=== PATIENT | male | born 1955 | race Caucasian/White ===

== ENCOUNTER 2019-05-24 15:25 | Inpatient (IN) | payer MEDICARE ==
[2019-05-24] MEDS ORDERED: Lidocaine Viscous Sol 2% 15 ml UD Cup ONE (17:19)
[2019-05-24] MEDS ORDERED: Mag-Al 1200 mg/1200 mg/30 ML UDCUP ONE (17:19)
--- NOTE | 2019-05-24 19:08 | PDOC.FPRHP ---
- History of Present Illness Chief Complaint: abdominal pain History of Present Illness: Patient is a 64M with PMHx of HTN, HLD, CVA 1.5 yrs ago, CABG (3-v) in 2014 that presents as a transfer from [place] for abdominal pain. The patient reports that since he has had intermittent mid- epigastric abdominal pain. He reports that he had a colonoscopy and endoscopy this past March that were both normal. He states that the pain has worsened over the last 2 days. He states that the pain usually occurs 1-2 hours after eating and is improved with eating. He also endorses dysuria and increased urinary frequency. He denies any cp, sob, n/v. He endorses 1-2 black watery stools/week for the last several months. Denies BRBPR. Cardiac hx: He reports his last stress test was last december, was normal at that time and he did not require a cath with stents. He had a CABG (3-v) in 2014. He had a CVA 1.5 years ago that left him with residual left-sided weakness that he reports has improved with therapy. PCP: [facility] ED Course: 3L NS, 324mg asa, 1in nitro, 3.375mg zosyn, 4mg morphine, 0.4mg nitrostat, GI cocktail - Allergies/Adverse Reactions Allergies Allergy/AdvReac Type Severity Reaction Status Date / Time Calcium Channel Blocking Allergy Verified 05/24/19 20:12 Agent Dilt Calcium Channel Blocking Allergy Verified 05/24/19 20:12 Agents-Dih furosemide [From Lasix] Allergy Verified 05/24/19 20:12 [id number] Reductase Allergy Verified 05/24/19 20:12 Inhibitor Sulfa (Sulfonamide Allergy Verified 05/24/19 20:12 Antibiotics) - Home Medications Medication Instructions Recorded Confirmed Type Linaclotide [Linzess] 72 mcg PO DAILY 05/24/19 05/24/19 History Lisinopril 40 mg PO DAILY 05/24/19 05/24/19 History Nebivolol HCl [Bystolic] 20 mg PO DAILY 05/24/19 05/24/19 History Omeprazole 40 mg PO DAILY 05/24/19 05/24/19 History Sildenafil Citrate 1 tab PO TID 05/24/19 05/24/19 History Tamsulosin HCl [Flomax] 1 cap PO DAILY 05/24/19 05/24/19 History clonazePAM [Clonazepam] 1 mg PO DAILY 05/24/19 05/24/19 History clonazePAM [Clonazepam] 2 mg PO HS 05/24/19 05/24/19 History - History PMHx: HTN, HLD, CVA 1.5 yrs ago, CABG (3-v) in 2014 PSHx: 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, laminectomy, appy, gaby, mitral valve replacement/surgery FHx: Father passed at age 86 from [place] Social: social drinker; reports drinks .5-1 pint of beer occasionally at home but as he is on vacation currently visiting his brother he has drank 1 pint of tequila/day for the last 3 days; non smoker, uses medical marijuana at home - Review of Systems General: denies: fever/chills, weight/appetite/sleep changes Eyes: denies: eye pain, vision changes ENT: denies: nasal congestion, rhinorrhea Respiratory: denies: cough, shortness of breath Cardiovascular: denies: chest pain, edema Gastrointestinal: reports: diarrhea, abdominal pain. denies: nausea, vomiting Genitourinary: reports: dysuria, other (increased urinary frequency) Skin: denies: lesions, jaundice Musculoskeletal: denies: tenderness, stiffness Neurological: denies: syncope, seizure Psychological: denies: anxiety, depression - Vital signs BP: [164/110] HR: [94] RR: [18] Tmax: [98.7F] Pox: [95]% on [RA] Wt: [99.79kg ] - Physical Exam Constitutional: NAD, awake, alert and oriented HEENT: normocephalic and atraumatic, MMM Neck: supple, FROM Chest: no-tender to palpation, no lesions Heart: RRR, normal S1/S2 Lungs: CTAB, no respiratory distress Abdomen: soft, bowel sounds present, other (slightly ttp LLQ) Musculoskeletal: normal structure, ROM grossly normal Neurological: no focal deficit, normal sensation Skin: no rash/lesions, good turgor Heme/Lymphatic: no unusual bruising or bleeding, no purpura Psychiatric: normal mood and affect, good judgment and insight Additional comment: CHEPE: no hemorrhoids noted, no BRBPR; small amount of brown stool, some tenderness with palpation of prostate FMR H&P: Results - Labs Lab results: CK-MB (CK-2) 2.0 ng/mL (0-6.6) 05/24/19 15:51 Lipase 9 U/L (8-78) 05/24/19 15:57 - EKG Interpretation EKG: Sinus tachycardia - Radiology Interpretation CT scan - abdomen Status: report reviewed by me (no acute process, small L renal cyst, prostatic enlargement, colonic diverticulosis) Chest x-ray Status: report reviewed by me (No acute process) FMR H&P: A/P - Problem List (1) Sepsis Current Visit: Yes Status: Acute Code(s): A41.9 - SEPSIS, UNSPECIFIED ORGANISM (2) Prostatitis Current Visit: Yes Status: Acute Code(s): N41.9 - INFLAMMATORY DISEASE OF PROSTATE, UNSPECIFIED (3) Abdominal pain Current Visit: Yes Status: Acute Code(s): R10.9 - UNSPECIFIED ABDOMINAL PAIN (4) Elevated troponin Current Visit: Yes Status: Acute Code(s): R79.89 - OTHER SPECIFIED ABNORMAL FINDINGS OF BLOOD CHEMISTRY (5) Elevated lactic acid level Current Visit: Yes Status: Acute Code(s): R79.89 - OTHER SPECIFIED ABNORMAL FINDINGS OF BLOOD CHEMISTRY (6) Hx of CABG Current Visit: Yes Status: Chronic (7) HTN (hypertension) Current Visit: Yes Status: Chronic Code(s): I10 - ESSENTIAL (PRIMARY) HYPERTENSION (8) HLD (hyperlipidemia) Current Visit: Yes Status: Chronic Code(s): E78.5 - HYPERLIPIDEMIA, UNSPECIFIED (9) History of CVA (cerebrovascular accident) Current Visit: Yes Status: Chronic Code(s): Z86.73 - PRSNL HX OF TIA (TIA), AND CEREB INFRC W/O RESID DEFICITS - Plan Patient is a 64F with PMHx of HTN, HLD, CVA 1.5 yrs ago, CABG (3-v) in 2014 admitted to [facility] obs for: #Sepsis 2/2 prostatitis #Elevated lactic acid -patient was sensitive with CHEPE -patient has received 3L NS -will continue IVF -will continue to monitor -will start levaquin at this time #Abdominal pain -has been intermittent since January 2019 -has had 1 black watery stool per week, sometimes pink -EGD and colonoscopy in March reportedly normal -pain described as occurring 1-2 hours after a meal and improves with food, suspect possible duodenal ulcer -pain has improved in ED with GI cocktail -FOBT pending -H pylori pending -start protonix qd, carafate QID #Elevated trop -trop 0.026>0.078 -patient denies chest pain, reports last stress in december was normal -will request records from last stress -EKG demonstrated sinus tach -will continue to trend trops; if positive with start therapeutic lovenox and call cards in am #HTN -continue home meds #HLD -continue home meds #Hx of CVA -patient reports symptoms resolved with therapy -will continue home meds Diet: HH DVT ppx: scds Dispo: tele obs for cardiac monitoring; will trend trops; protonix and carafate for abdominal pain, h pylori and FOBT pending Code: Full PCP: [facility] FMR H&P: Upper Level - Plan Date/Time: 05/24/19 005 IEdmund MD, have evaluated this patient and agree with findings/plan as outlined by staff internist office based only resident. Pertinent changes/additions are listed here. Gene Huff is a 64 year old M with a PMH of CVA, CAD s/p 3V CABG in 2014, HTN, HLD who was transferred to [facility] from [place] for abdominal pain r/o sepsis and ACS r/o. Pt states that since thanksgiving he has been having midepigastric pain intermittently. Had neg EGD and colonoscopy in Jan 2019. Epigastric pain has worsened over the last two days. States that he has had low back pain as well and intermittent dysuria for the last month. Denies any fever, chills, chest pain, dyspnea, n/v. Endorses occasional black watery stools per week. Denies BRBPR. He states his last stress test was done in March and was normal. Active, Walks 2 miles a day. He was given zosyn, 2 L NS, morphine and GI cocktail and ASA and nitro in ED. In the ED, vitals were BP 164/110, HR 84, RR 18, O2 sat 95% on RA, T 98.7. EKG showed sinus tachycardia. CT abd showed no active process, small left renal cyst, prostatic enlargement, diverticulosis. CXR neg. Labs showed trop 0.078, TSH 1.72, Lipase 9, Lactic acid 4.1. UA neg, WBC 8.6. On exam, MMM, AT/NC, RRR no murmurs, lungs CTAB, abdomen mildly tender in suprapubic location. Rectal exam sig for tender prostate. FOBT neg. Admitting patient for sepsis 2/2 possible prostatitis. Starting levaquin. Blood and urine cultures drawn. For ACS r/o, trend trops. If trops become positive, will start therapeutic lovenox and consult cardiology in the AM. Please see staff internist office based only note above for full h&p, which I have reviewed and agree with. Addendum - Attending - Attending Attestation Date/Time: 05/24/19 5471 I personally evaluated the patient and discussed the management with Dr. Sherwood/ Tristin I agree with the History, Examination, Assessment and Plan documented above with any addition or exceptions noted below. See staff internist office based only note for details.
[2019-05-24 19:27] LABS: Troponin I 0.237 ng/mL (< 0.028)
[2019-05-24] MEDS ORDERED: Ondansetron PF 4 MG/2 ML Vial IVP PRN (19:52)
[2019-05-24] MEDS ORDERED: Acetaminophen 325 MG TAB PO PRN (19:52)
[2019-05-24] MEDS ORDERED: Ondansetron ODT 4 MG TAB SL PRN (19:52)
[2019-05-24 20:01] VITALS: BMI 28.0
[2019-05-24] MEDS ORDERED: Ondansetron ODT 4 MG TAB PO PRN (20:14)
--- NOTE | 2019-05-24 21:10 | PDOC.EVN ---
Addendum - Attending - Attending Attestation Date/Time: 05/24/192108 I personally evaluated the patient and discussed the management with Dr. Sherwood/ Tristin. I agree with the History, Examination, Assessment and Plan documented above with any addition or exceptions noted below. 64 yo WM PMH CAD s/p PCI and CABG x3 VZ. Presents with epigastric pain and pain with urination. Epigastric pain intermittent for several months but worsened over past 2-3 days. Dysuria present for 2-3 days. Has known hx of BPH but hx of operative intervention. Not currently on meds. States epigastric pain resolved with GI cocktail and endorses increased EtOH use since he came to [facility] to visit family. Denies fever/chills or CP. Denies new sexual partners or MSM. In outside ER, found to be tachycardia and tachypnic with elevated lactate. On exam , mild tachycardia but otherwise WNL. CHEPE performed by materials intern which patient stated he felt more pain with palpation of prostate. Labs show up trending trop , elevated lactate, EKG shows sinus tach but otherwise unremarkable. CXR negative. CT abd/pelvis negative. Will admit inpatient for Severe sepsis 2/2 acute prostatitis and demand ischmia w/o SC. Continue IV fluids and IV levaquin. Trend trop and if becomes >0.3 will give therapeutic lovenox x1 dose until cardiology can evaluate. Will monitor closely. Start flomax. Inpatient, tele, >2 midnights.
[2019-05-24] MEDS: Sucralfate 1 GM/10 ML UDCUP PO SCH (21:16)
[2019-05-24] MEDS: Lactated Ringer's 1,000 ML IV SCH (21:20)
[2019-05-24 22:35] LABS: Lactic Acid 1.1 mmol/L (0.5-2.2)
[2019-05-24] MEDS ORDERED: clonazePAM 1 MG TAB PO SCH (22:45)
[2019-05-24 22:46] LABS: Troponin I 0.386 ng/mL (< 0.028)
[2019-05-24] MEDS ORDERED: Enoxaparin Sodium 100 MG/ML SYRINGE SC SCH (23:15)
[2019-05-25] MEDS: Acetaminophen 325 MG TAB PO PRN (03:57)
[2019-05-25] MEDS: Labetalol HCl 100 MG/20 ML VIAL SLOW IVP PRN (04:35)
[2019-05-25] MEDS: Lactated Ringer's 1,000 ML IV SCH (04:36)
[2019-05-25 04:53] LABS: #Basophils 0.1 thou/uL (0.0-0.2); #Eosinphils 0.2 thou/uL (0.0-0.7); #Lymphocytes 2.5 thou/uL (1.20-3.40); #Monocytes 0.6 thou/uL (0.11-0.59); %Basophils 0.9 % (0.0-1.0); %Eosinophils 2.8 % (0.0-10.0); %Lymphocytes 30.1 % (21.0-51.0); %Neutrophils 59.1 % (42.0-75.0); Hemoglobin 13.9 g/dL (14.0-18.0); Mean Corpuscular Hemoglobin 32.1 pg (27.0-31.0); Mean Corpuscular Volume 94.2 fL (78.0-98.0); Mean Platelet Volume 9.2 fL (7.4-10.4); Platelet Count 172 thou/uL (130-400); RBC Distribution Width 11.8 % (11.5-14.5); Red Blood Cell (RBC) Count 4.33 mill/uL (4.70-6.10); White Blood Cell (WBC) Count 8.4 thou/uL (4.8-10.8)
[2019-05-25 05:17] LABS: Anion Gap 11 mmol/L (10-20); BUN (Urea Nitrogen) 11 mg/dL (8.4-25.7); Calc. Creatinine Clearance 118 mL/min (70-130); Calcium 9.7 mg/dL (7.8-10.44); Carbon Dioxide 26 mmol/L (23-31); Chloride 103 mmol/L (98-107); Estimated GFR-MDRD Greater than 90; Glucose 99 mg/dL (80-115); Potassium 3.9 mmol/L (3.5-5.1); Sodium 136 mmol/L (136-145)
[2019-05-25 05:22] LABS: Troponin I 0.467 ng/mL (< 0.028)
[2019-05-25] MEDS: Morphine 2 MG/ML SYRINGE SLOW IVP PRN ×3 (05:31→14:15)
[2019-05-25] MEDS: Nebivolol HCl 5 MG TAB PO SCH (08:23)
[2019-05-25] MEDS: Sucralfate 1 GM/10 ML UDCUP PO SCH ×4 (08:34→21:10)
[2019-05-25] MEDS: clonazePAM 1 MG TAB PO SCH (08:36)
--- NOTE | 2019-05-25 08:47 | PDOC.FM ---
- Subjective Subjective: Pt reports abd pain has improved somewhat but he still feels some suprapubic tenderness, states he now has burning on urination. otherwise no new complaints no cp/palpitations, no no sob/cough - Objective Vital Signs & Weight: Vital Signs (12 hours) Temp Pulse Resp BP BP Pulse Ox 05/25/19 08:22 156/86 H 05/25/19 08:02 97.9 F 83 16 156/86 H 95 05/25/19 06:12 83 164/91 H 05/25/19 04:35 99 189/104 H 05/25/19 04:10 99 189/104 H 100 05/25/19 03:40 98.2 F 84 20 184/102 H 95 05/24/19 23:39 97.6 F 84 16 154/87 H 95 Weight Weight 93.803 kg I&O: 05/24/19 05/25/19 05/26/19 06:59 06:59 06:59 Intake Total 1633 Output Total 1750 Balance -117 Result Diagrams: 05/25/19 11:02 05/25/19 04:39 Phys Exam - Physical Examination Constitutional: NAD HEENT: moist MMs, sclera anicteric Neck: supple, full ROM Respiratory: no wheezing, clear to auscultation bilateral Cardiovascular: RRR, no significant murmur Gastrointestinal: soft suprapubic ttp Musculoskeletal: no edema, pulses present Neurological: normal sensation, moves all 4 limbs Psychiatric: normal affect, A&O x 3 Skin: no rash, normal turgor Dx/Plan (1) Abdominal pain Code(s): R10.9 - UNSPECIFIED ABDOMINAL PAIN Status: Acute (2) Elevated lactic acid level Code(s): R79.89 - OTHER SPECIFIED ABNORMAL FINDINGS OF BLOOD CHEMISTRY Status : Acute (3) Elevated troponin Code(s): R79.89 - OTHER SPECIFIED ABNORMAL FINDINGS OF BLOOD CHEMISTRY Status : Acute (4) Prostatitis Code(s): N41.9 - INFLAMMATORY DISEASE OF PROSTATE, UNSPECIFIED Status: Acute (5) Sepsis Code(s): A41.9 - SEPSIS, UNSPECIFIED ORGANISM Status: Acute (6) HLD (hyperlipidemia) Code(s): E78.5 - HYPERLIPIDEMIA, UNSPECIFIED Status: Chronic (7) HTN (hypertension) Code(s): I10 - ESSENTIAL (PRIMARY) HYPERTENSION Status: Chronic (8) History of CVA (cerebrovascular accident) Code(s): Z86.73 - PRSNL HX OF TIA (TIA), AND CEREB INFRC W/O RESID DEFICITS Status: Chronic (9) Hx of CABG Status: Chronic - Plan Plan: Patient is a 64F with PMHx of HTN, HLD, CVA 1.5 yrs ago, CABG (3-v) in [address] [facility] obs for: sepsis 2/2 prostatitis A- Pt is stable, s/p 3L bolus IVF and on 140ml/hr overnight. Pressures stable and actually now hypertensive. P- continue levaquin -f/u BCx and UCx -will DC IVF as pt pressures stable and pt has hx of CAD -will monitor for urinary retention as pt has hx of BPH Abdominal pain A- improved. FOBT negative. has been intermittent since January 2019. he has intermittent melena. EGD and colonoscopy in March reportedly normal. pain has improved in ED with GI cocktail P-H pylori pending -continue protonix qd, carafate QID Elevated trop A- Pt got one dose Th lovenox overnight. trop 0.026>0.078->-> .46. patient denies chest pain, reports last stress in december was normal. EKG demonstrated sinus tach P- consult cards HTN -continue home meds HLD -continue home meds Hx of CVA -patient reports symptoms resolved with therapy. will continue home meds Code: Full PCP: [facility] Addendum - Attending - Attending Attestation Date/Time: 05/25/19 1120 I personally evaluated the patient and discussed the management with Dr. Hudson. I agree with the History, Examination, Assessment and Plan documented above with any addition or exceptions noted below. Continue antibiotics. Discuss with urology concerning catheter placement.
[2019-05-25] MEDS ORDERED: Tamsulosin HCl 0.4 MG CAP PO SCH ×2 (09:00→21:00)
[2019-05-25] MEDS ORDERED: Enoxaparin Sodium 100 MG/ML SYRINGE SC SCH (09:00)
[2019-05-25] MEDS ORDERED: Enoxaparin Sodium 40 MG/0.4 ML SYRINGE SC SCH (09:00)
[2019-05-25] MEDS ORDERED: Lisinopril 20 MG TAB PO SCH (09:00)
[2019-05-25] MEDS ORDERED: Linaclotide [Linzess] 72 MCG PO SCH (09:00)
[2019-05-25 11:08] LABS: Hemoglobin 14.6 g/dL (14.0-18.0); Platelet Count 179 thou/uL (130-400)
[2019-05-25 11:36] LABS: Calc. Creatinine Clearance 122 mL/min (70-130); Estimated GFR-MDRD Greater than 90
--- NOTE | 2019-05-25 12:14 | CON ---
DATE OF CONSULTATION: HISTORY OF PRESENT ILLNESS: The patient is a 64-year-old gentleman with a history of coronary artery disease who presents for evaluation for abdominal/ pelvic pain was noted to have an elevated troponin level. The patient has a previous history of coronary artery disease. He states he underwent coronary artery bypass surgery x3 in 2014. He has subsequently done well. The patient denies having any chest discomfort. The patient presents with acute onset of abdominal discomfort and pelvic pain. He has a long history of difficulty with urination. The patient came to the hospital for evaluation and was noted to be markedly hypertensive. The patient denied having any type of chest discomfort. The patient denies having any dyspnea. PAST MEDICAL HISTORY: 1. Coronary artery disease. 2. CVA. 3. Hypertension. 4. BPH. PAST SURGICAL HISTORY: Brain tumor surgery and sinus surgery. SOCIAL HISTORY: Nonsmoker. ALLERGIC: Calcium channel blockers, Lasix, statins, and sulfa drugs. FAMILY HISTORY: Positive family history of heart disease. PHYSICAL EXAMINATION: GENERAL: Well-developed gentleman, in no acute distress. VITAL SIGNS: Blood pressure 156/86. NECK: No jugular distention. LUNGS: Clear to auscultation. HEART: Regular rate and rhythm. Normal S1, S2. No murmurs. ABDOMEN: Nondistended. EXTREMITIES: Showed no edema. VASCULAR: Radial pulse 2+. LABORATORY DATA: Sodium 139, potassium 3.9, chloride 103, bicarbonate 26, BUN 11, creatinine 0.84. Troponin was 0.467. white blood cell count is 8.4, hemoglobin 14.6, hematocrit 42.0, platelets 179. IMAGING: EKG : Sinus tachycardia with occasional PVCs. IMPRESSION: 1. Abdominal pain. 2. Elevated troponin level, type 2 myocardial infarction. 3. History of coronary artery bypass surgery. 4. Hypertension. 5. History of cerebrovascular accident. 6. Dyslipidemia. This gentleman presents with abdominal pelvic pain. He presents with marked urinary retention. From a cardiac standpoint, he has a mild elevation of troponin levels indicative of a type 2 myocardial infarction secondary to his elevated blood pressure and heart rate. We will continue to monitor the patient with you and would restart aspirin. We will follow this patient with you through his hospitalization. Job ID: [id number] [facility]
[2019-05-25] MEDS: Aspirin 81 mg Enteric Coated Tablet PO SCH (12:21)
[2019-05-25] MEDS: Docusate 100 MG CAP PO PRN (12:44)
--- NOTE | 2019-05-25 13:40 | CON ---
DATE OF CONSULTATION: 05/25/2019 REASON FOR REFERRAL: Urinary retention, UTI. HISTORY OF PRESENT ILLNESS: Mr. Huff is a pleasant 64-year-old male, resident from [place], visiting his family, presented to the emergency room. Due to abdominal discomfort, he had a CT of the abdomen and pelvis with IV contrast. He was found to have urinary retention of 900 mL of postvoid residual, he was briefly on CIC, however, this was uncomfortable for him. Therefore, urologic consultation was obtained. He has been resuscitated with 3 L of IV fluids and appears comfortable at this time. Relates that he previously saw a urologist in [place], where he is a resident, provided Flomax and has been on numerous years. He also relates remote history of likely urethral stricture in which this was treated in [place]. He has had a Strong catheter per my request as he has large PVR of 900 mL, which was placed by nursing staff, currently draining mariella pink-tinged urine. He denies chills. Did have a Strong catheter in the remote past due to prior urinary retention. He is on Levaquin with Primary Service and currently afebrile, with no evidence of leukocytosis or fever. Cardiology has been consulted, as he has history of coronary artery disease, prior history of CVA. Elevated troponin noted. Therefore, Cardiology consultation was obtained. No plans to intervene from surgical standpoint at this time, as it is felt that elevated troponin may be secondary to hypertension and tachycardia. He is to restart his aspirin. Does relate history of dysuria prior to presentation. Denies gross hematuria or chills. PAST MEDICAL HISTORY: 1. Hypertension. 2. Hyperlipidemia. 3. CVA about a year and a half ago. 4. Coronary artery disease, status post CABG in 2014. 5. 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 6. Laminectomy. 7. Appendectomy. 8. Cholecystectomy. 9. Mitral valve replacement. FAMILY HISTORY: Father history, positive for [place] at age 86. SOCIAL HISTORY: He is a social drinker, occasional beer. Currently visiting his brother. Nonsmoker. Occasionally uses medical marijuana at home. REVIEW OF SYSTEMS: Ten-point review of systems as above, otherwise noncontributory. PHYSICAL EXAMINATION: VITAL SIGNS: His vital signs are stable. He is afebrile at 97.6, pulse 73, respiratory rate 16, oxygen saturation 95, and blood pressure 180/97. Vital signs from the emergency room reviewed, demonstrating no history of fever, however, he had mild tachycardia, pulse of 112, blood pressure hypertensive at 170/116. GENERAL: The patient appears to be in no acute distress. HEENT: Grossly unremarkable. HEART: Regular rate. LUNGS: Clear. ABDOMEN: Obese, protuberant. No rigidity. No rebound. GENITOURINARY: Strong catheter draining mariella yellow urine, slightly pink tinged with no clots. Testes are descended with no evidence of intratesticular mass. CHEPE gently performed demonstrating no discrete nodularity of concern. EXTREMITIES: No cyanosis, clubbing, or edema. He does have left hip ecchymosis and left upper extremity ecchymosis as he sustained a fall from his dog in the past. PERTINENT LABORATORY DATA AND IMAGING: White count 8, hemoglobin 13, no significant shift. Creatinine 0.8. Lactic acid is normal. Troponin is 0.46. On 2019, UA is unremarkable with no evidence of significant hematuria or pyuria of concern. I do not see that he was provided antibiotics from the emergency room. CT of the abdomen and pelvis with contrast, which I reviewed myself: A 12-mm exophytic renal cyst with no evidence of hydronephrosis. Colonic diverticulosis. Prostatic enlargement. Per my review, prostate measures 5.5 x 5.9, craniocaudal dimension of 8 cm. Of note, there was a median lobe component about 1.9 cm in craniocaudal dimension. Volume per my review estimated to be about 145 g. No bladder stones are seen. IMPRESSION AND PLAN: 1. Mr. Huff is a 64-year-old male with history of coronary artery disease, history of known benign prostatic hyperplasia.; Very large prostate volume trilobar hyperplasia on recent CT. 2. Likely history of urethral stricture in the remote past, presents with abdominal pain, hypertension, and mild elevated troponin. Urologic issues of PVR of 900 mL. Given his clinical history of possible urethral stricture as well, I do recommend the patient continue his indwelling urethral Strong catheter as there is significant PVR. I informed him that he will continue his indwelling Strong catheter for bladder rest due to overdistention injury due to large PVR. Based on his large prostate volume, I recommend Flomax to be increased to b.i.d., Avodart initiated. Indications reviewed. He plans to travel back to [place] next week, as he drove with his . I informed him that they should contact their primary care doctor and initiate a urology referral, so that he may be seen in a timely manner with a urologist in [place] for a voiding trial. Strong catheter indwelling would be recommended for minimum 1 to 2 weeks to allow bladder rest. Outpatient work-up with cystoscopy, will most likely require surgical intervention given his large prostate with intravesical median lobe. will follow on this admission. Call if any questions or concerns. Follow urine culture. Continue antibiotic regimen. Job ID: [id number] [facility]
--- NOTE | 2019-05-25 15:55 | EKG ---
Test Reason : Blood Pressure : / mmHG Vent. Rate : 081 BPM Atrial Rate : 081 BPM P-R Int : 176 ms QRS Dur : 092 ms QT Int : 408 ms P-R-T Axes : 060 -02 039 degrees QTc Int : 473 ms Normal sinus rhythm Normal ECG No previous ECGs available Confirmed by ROSI GAMEZ, DR. Treviño ([id number]) on 05/25/2019 3:55:17 PM Referred By: ANIKET Confirmed By:DR. Kamila ARANDA MD
[2019-05-25] MEDS ORDERED: clonazePAM 1 MG TAB PO SCH (21:00)
[2019-05-25] MEDS: Tamsulosin HCl 0.4 MG CAP PO SCH (21:11)
[2019-05-25] MEDS: Lisinopril 20 MG TAB PO SCH (21:12)
[2019-05-26] MEDS: Docusate 100 MG CAP PO PRN ×2 (02:25→08:58)
[2019-05-26] MEDS: Acetaminophen 325 MG TAB PO PRN (02:25)
--- NOTE | 2019-05-26 06:23 | PDOC.FM ---
- Subjective Subjective: Patient feeling better this morning. Says he still feels a "catch" in his lower abdomen and still feels some suprapubic pressure. He says he spoke with his PCP in [place] and that he was instructed by the PCP to stay in the [facility] area for the foreseeable future due to the COVID-19 outbreak. He wants to have any needed surgical intervention done in [place] instead of having done in [place]. He does have relatives in the [facility] area that he can stay with if surgery warranted. - Objective MAR Reviewed: Yes Vital Signs & Weight: Vital Signs (12 hours) Temp Pulse Resp BP BP Pulse Ox 05/26/19 04:00 160/96 H 05/26/19 02:31 76 16 160/96 H 96 05/25/19 21:12 147/81 H 05/25/19 20:00 98.4 F 78 16 147/81 H 147/81 H 96 Weight Admit Weight 93.803 kg Weight 93.803 kg I&O: 05/24/19 05/25/19 05/26/19 06:59 06:59 06:59 Intake Total 2133 Output Total 4550 Balance -2417 Result Diagrams: 05/25/19 11:02 05/25/19 11:02 Phys Exam - Physical Examination Constitutional: NAD HEENT: moist MMs, sclera anicteric Neck: no nodes, no JVD, supple Respiratory: no wheezing, no rhonchi, clear to auscultation bilateral Cardiovascular: RRR, no significant murmur Gastrointestinal: soft, no distention, positive bowel sounds mildly TTP suprapubic area Musculoskeletal: no edema, pulses present Neurological: normal sensation, moves all 4 limbs Lymphatic: no nodes Psychiatric: normal affect, A&O x 3 Skin: no rash, normal turgor Dx/Plan (1) Non-ST elevation (NSTEMI) myocardial infarction Code(s): I21.4 - NON-ST ELEVATION (NSTEMI) MYOCARDIAL INFARCTION Status: Acute (2) Abdominal pain Code(s): R10.9 - UNSPECIFIED ABDOMINAL PAIN Status: Acute Qualifiers: Abdominal location: generalized Qualified Code(s): R10.84 - Generalized abdominal pain (3) Elevated lactic acid level Code(s): R79.89 - OTHER SPECIFIED ABNORMAL FINDINGS OF BLOOD CHEMISTRY Status : Acute (4) Prostatitis Code(s): N41.9 - INFLAMMATORY DISEASE OF PROSTATE, UNSPECIFIED Status: Acute Qualifiers: Prostatitis type: acute Qualified Code(s): N41.0 - Acute prostatitis (5) Sepsis Code(s): A41.9 - SEPSIS, UNSPECIFIED ORGANISM Status: Acute Qualifiers: Sepsis type: sepsis due to unspecified organism Severe sepsis acute organ dysfunction type: acute renal failure Acute renal failure type: unspecified Severe sepsis shock status: without septic shock (6) HLD (hyperlipidemia) Code(s): E78.5 - HYPERLIPIDEMIA, UNSPECIFIED Status: Chronic Qualifiers: Hyperlipidemia type: unspecified Qualified Code(s): E78.5 - Hyperlipidemia , unspecified (7) HTN (hypertension) Code(s): I10 - ESSENTIAL (PRIMARY) HYPERTENSION Status: Chronic Qualifiers: Hypertension type: unspecified Qualified Code(s): I10 - Essential (primary ) hypertension (8) History of CVA (cerebrovascular accident) Code(s): Z86.73 - PRSNL HX OF TIA (TIA), AND CEREB INFRC W/O RESID DEFICITS Status: Chronic (9) Hx of CABG Status: Chronic - Plan Plan: Patient is a 64F with PMHx of HTN, HLD, CVA 1.5 yrs ago, CABG (3-v) in 2014 admitted to [facility] in for: #Sepsis 2/2 prostatitis -Pt is stable, s/p 3L bolus IVF and on 140ml/hr maintenance. IVF discontinued yesterday. Pressures stable and actually now hypertensive. -continue Levaquin -f/u BCx from outside ED, urine cultures not obtained -will DC IVF as pt pressures stable and pt has hx of CAD -will monitor for urinary retention as pt has hx of BPH -Consult Urology--Dr. Luevano--appreciate recs, will continue Flomax with increase to BID dosing, start Avodart, recommends leaving Strong cath in for minimum of 1-2 weeks, will need f/u with PCP and Urology once he returns to [place] , continue Levaquin -Patient prefers to have all interventions for BPH done in [place] instead of [place] #Abdominal pain -improved. FOBT negative. has been intermittent since January 2019. he has intermittent melena. EGD and colonoscopy in March reportedly normal. pain has improved in ED with GI cocktail -H pylori negative -continue protonix qd, carafate QID #Type 2 NSTEMI -Pt got one dose Th lovenox overnight. trop 0.026>0.078->-> .46. patient denies chest pain, reports last stress in december was normal. EKG demonstrated sinus tach -Consult cards-Dr. Reyna, appreciate recs--will restart ASA 81 mg daily, following with this admission #HTN -continue home meds #HLD -continue home meds #Hx of CVA -patient reports symptoms resolved with therapy. will continue home meds Code: Full PCP: ERIC ([place]) Dispo: Stable, admitted to in on tele unit. Continue to monitor. Cardio & Urology consulted, appreciate recs. Anticipate discharge in <48 hours. Addendum - Attending - Attending Attestation Date/Time: 05/26/19 7316 I personally evaluated the patient and discussed the management with [Isaac ] I agree with the History, Examination, Assessment and Plan documented above with any addition or exceptions noted below. Possible DC with catheter and surgery later depending on urology discussion with patient.
[2019-05-26] MEDS: Nebivolol HCl 5 MG TAB PO SCH (08:38)
[2019-05-26] MEDS: Aspirin 81 mg Enteric Coated Tablet PO SCH (08:38)
[2019-05-26] MEDS: Tamsulosin HCl 0.4 MG CAP PO SCH (08:38)
[2019-05-26] MEDS: Lisinopril 20 MG TAB PO SCH (08:39)
[2019-05-26] MEDS: clonazePAM 1 MG TAB PO SCH (08:39)
[2019-05-26] MEDS: Sucralfate 1 GM/10 ML UDCUP PO SCH ×2 (08:40→11:39)
[2019-05-26] MEDS: Morphine 2 MG/ML SYRINGE SLOW IVP PRN ×2 (08:58→13:11)
[2019-05-26] MEDS ORDERED: Enoxaparin Sodium 30 MG/0.3 ML SYRINGE SC SCH (09:00)
[2019-05-26] MEDS ORDERED: Dutasteride 0.5 MG CAP PO SCH (09:00)
[2019-05-26] MEDS ORDERED: Ibuprofen 600 MG TAB PO PRN (10:39)
[2019-05-26] MEDS: Labetalol HCl 100 MG/20 ML VIAL SLOW IVP PRN (11:38)
[2019-05-26 11:47] VITALS: TEMP 99.3
[2019-05-26 13:35] VITALS: BP 165/101
--- NOTE | 2019-05-26 14:58 | EKG ---
Test Reason : Blood Pressure : / mmHG Vent. Rate : 107 BPM Atrial Rate : 107 BPM P-R Int : 148 ms QRS Dur : 078 ms QT Int : 372 ms P-R-T Axes : 052 -22 026 degrees QTc Int : 496 ms Sinus tachycardia Otherwise normal ECG Confirmed by MARIEL GAMEZ, ANUSHA ([id number]), subeditor CIARA SELF ([id number]) on 05/26/2019 2:58:35 PM Referred By: Confirmed By:ANUSHA FLOYD MD
[2019-05-26] MEDS ORDERED: hydrALAZINE 25 MG TAB PO SCH (15:00)
--- NOTE | 2019-05-26 15:03 | PRG ---
DATE OF SERVICE: 05/26/2019 SUBJECTIVE: The patient feeling fine, he has been deemed cleared by Primary Service to be discharged. OBJECTIVE: VITAL SIGNS: T-max of 99.3, blood pressure 165/101, respiratory rate 12, and 95% on room air. I's and O's are 2133 in and 4550 out. GENERAL: The patient is in no acute distress. LUNGS: Clear. ABDOMEN: Soft. No rigidity. No rebound. GENITOURINARY: Strong catheter adequately secured, there is degree of hematuria light red as he is on aspirin and Lovenox with minimal scant clots. I did flush his catheter, which demonstrates clear yellow urine. He desires to be discharged with gravity bag as he is planning to travel back to [place] in his private vehicle. IMPRESSION AND PLAN: 1. Mr. Huff is a 64-year-old male with history of coronary artery disease, known history of benign prostatic hyperplasia, recent CT demonstrating very large prostate volume trilobar hyperplasia. 2. Remote history of urethral stricture in the past, presented with urinary retention of PVR of 900 mL on this admission. His Flomax once a day has been increased to b.i.d. and Avodart initiated. patient is due to travel back to his home in [place]. I informed him that as he is traveling in private vehicle, it is safe to disposition himself back to his own private residence. Recommend he follows up with his PCP, and Urology referral/appointment is recommended with a physician in [place]. I do not recommend Strong catheter to be removed for minimum 1 to 2 weeks , as he has overdistention bladder injury from PVR of 900 mL. From urologic perspective, I informed him that it would be prudent to perform a voiding trial In few weeks , outpatient workup would include cystoscopy, followup PSA, and consideration for elective surgical intervention for benign prostatic hyperplasia as he does demonstrate very large prostate volume on CT. he inquires regarding staying in town to proceed with surgery. I informed him that our hospital has canceled all elective surgeries, moreover further work-up is indicated, prior to proceeding with BPH surgery. Questions encouraged and answered and they feel comfortable being discharged today. Instructions provided regarding Strong catheter care, gravity bag use. Job ID: [id number] MTDD
--- NOTE | 2019-05-28 11:46 | DIS ---
DATE OF ADMISSION: 05/24/2019 DATE OF DISCHARGE: 05/26/2019 RESIDENT: Violeta Gray DO ADMITTING ATTENDING: Quintin Lara MD DISCHARGE ATTENDING: Tristan Borges DO CONSULT: 1. Urology, Dr. Luevano. 2. Cardiology, Dr. Reyna. PROCEDURES: 1. CT abdomen and pelvis on May 24, 2019: a. Prostatic enlargement. b. Colonic diverticulosis. c. Small left renal cyst. 2. Chest x-ray on May 24, 2019: No evidence of acute cardiopulmonary disease. The patient is status post coronary artery bypass grafting. PRIMARY DIAGNOSIS: Sepsis secondary to prostatitis. SECONDARY DIAGNOSES: 1. Abdominal pain. 2. Type 2 non-ST elevation myocardial infarction. 3. Hypertension. 4. Hyperlipidemia. 5. History of cerebrovascular accident. DISCHARGE MEDICATIONS: 1. Avodart 0.5 mg p.o. daily. 2. Levofloxacin 500 mg p.o. daily for 2 days. 3. Tamsulosin HCL (Flomax) 0.4 mg p.o. b.i.d. 4. Hydralazine 25 mg p.o. t.i.d. 5. Clonazepam 2 mg p.o. at bedtime. 6. Clonazepam 1 mg p.o. daily. 7. Omeprazole 40 mg p.o. daily. 8. Bystolic 20 mg p.o. daily. 9. Sildenafil citrate 20 mg p.o. t.i.d. 10. Lisinopril 40 mg p.o. daily. 11. Linzess 72 mcg p.o. daily. DISCONTINUED MEDICATIONS: 1. Carafate 1 g p.o. q.i.d. 2. Labetalol 10 mg slow IVP q.4 hours p.r.n. 3. Lactated Ringer's IV at 140 mL/h. 4. Pantoprazole 40 mg p.o. daily. HISTORY OF PRESENT ILLNESS/HOSPITAL COURSE: The patient is a 64-year-old male with past medical history of hypertension, hyperlipidemia, CVA 1-1/2 years ago, CABG three-vessel in 2014, who presents as a transfer from [facility] for abdominal pain. The patient reports that since , he has had intermittent mid epigastric abdominal pain. He reports that he had a colonoscopy and endoscopy this past March, that are both normal. He states that the pain has worsened over the last 2 days. He states the pain usually occurs 1 to 2 hours after eating and is improved with eating. He also endorses dysuria and increased urinary frequency. He denies any chest pain, shortness of breath, nausea, vomiting, bright red blood per rectum. He does endorse 1 to 2 black watery stools per week for the last several months. He reports his last stress test was last December, was normal at that time and did not require catheterization with stents. He does have a history of a CVA 1-1/2 years ago that left him with residual left-sided weakness that he reports has improved after therapy. In the emergency department, the patient was given 3 L of normal saline, 324 mg of aspirin, one nitroglycerin, 3.375 mg of Zosyn, 4 mg of morphine, 0.4 mg of Nitrostat, and a GI cocktail. The patient was then found on CT abdomen and pelvis to have an enlarged prostate. Upon arrival at the floor, a digital rectal exam was performed and the patient was exquisitely tender over his prostate. The patient was thought to be septic due to prostatitis and started on Levaquin and IV fluids. Also due to his abdominal pain and description of black stools, he was started on Protonix and Carafate. Over the next several hours, the patient's troponin continued to trend up from initial 0.026 to 0.46. His EKG demonstrated sinus tachycardia. Cardiology was consulted and determined to perform medical management at this time. The patient's abdominal pain improved. The patient was evaluated by Urology on May [address] Luevano. They recommended to do a postvoid residual of 900 mL that the patient had a possible urethral stricture in addition to benign prostatic hypertrophy. They recommended placing an indwelling urethral Strong catheter, which will need to remain in place for at least 1 to 2 weeks minimum. They also increased his Flomax to b.i.d. dosing and started Avodart. The patient was informed that he will need further workup as an outpatient with cystoscopy after he recovers from this acute episode. He will likely need ultimately surgical intervention. In the afternoon of May 26, 2019, the patient was deemed stable for discharge back to home. He was given Strong catheter care instructions and instructed to follow up with PCP in 1 to 2 weeks. The patient lives out of state in [place], he was advised that it would be safe to travel by car back home. He will need further urology workup as an outpatient once he returns home. DISPOSITION: Stable. DISCHARGE INSTRUCTIONS: 1. Location: Home. 2. Diet: Heart healthy. 3. Activity: As tolerated. 4. Followup: Follow up with PCP in 2 weeks. Job ID: [id number] ROSALIO
== END 2019-05-26 15:51 | disposition home or self-care (01) | DRG 871 ==
LOC: ERS 15:25 → 2SW 17:57 → OBSVTOIN 17:57
PROVIDERS: ADMIT Family Medicine; ATTEND Family Medicine
DX: A41.9 Sepsis, unspecified organism (principal); I21.A1 Myocardial infarction type 2; N41.0 Acute prostatitis; N17.9 Acute kidney failure, unspecified; R65.20 Severe sepsis without septic shock; I10 Essential (primary) hypertension; N40.1 Benign prostatic hyperplasia with lower urinary tract symptoms; E78.5 Hyperlipidemia, unspecified; R33.8 Other retention of urine; Z86.73 Personal history of transient ischemic attack (TIA), and cerebral infarction without residual deficits; Z95.1 Presence of aortocoronary bypass graft; Z88.2 Allergy status to sulfonamides; Z88.8 Allergy status to other drugs, medicaments and biological substances; Z79.899 Other long term (current) drug therapy; Z79.01 Long term (current) use of anticoagulants; Z95.2 Presence of prosthetic heart valve; Z86.011 Personal history of benign neoplasm of the brain; Z90.49 Acquired absence of other specified parts of digestive tract
CPT/HCPCS: 36415; 51701; 80048; 82274; 82553; 83605; 83690; 84484; 85025; 85379; 87086; 87338; 93005; 93010; J1650; J1956; J2270